=== PATIENT | female | born 1995 | race American Indian/Alaskan Native ===

== ENCOUNTER 2017-07-18 18:41 | Emergency (ER) | payer SELFPAY ==
[2017-07-18 19:18] VITALS: BP 121/82
[2017-07-18 21:38] LABS: Bacteria,Urine 1+ /HPF (Negative); Bilirubin,Urine NEG (Negative); Blood,Urine NEG (Negative); Color,Urine Yellow (Yellow); Mucus,Urine FEW /HPF; Protein,Urine <15 mg/dL mg/dL (Negative)
[2017-07-18 21:42] LABS: HCG Qualitative,Urine Positive (Negative)
--- NOTE | 2017-07-18 21:56 | Emergency Department Report ---
Chief Complaint: Urogenital-Female Stated Complaint: MEDICAL CLEARANCE Time Seen by Provider: 07/18/17 21:14 - HPI History of Present Illness: This is a 22-year-old female nontoxic, well nourished in appearance, no acute signs of distress presents to the ED for a pregnany test and STD testing. Patient denies any vaginal discharge or vaginal bleeding. Patient stated she had unproctive sex with boyfriend and "just want a check-up". Patient denies any urinary symptoms. Patient denies any fever, chills, nausea, vomiting, chest pain, short of breath, abdominal pain, back pain, stiff neck or headache. Patient denies any allergies or past medical history. - Exam Vital Signs: Vital Signs 07/18/17 19:12 Temperature 98.5 F Pulse Rate 71 Respiratory 16 Rate Blood Pressure 121/82 O2 Sat by Pulse 98 Oximetry Physical Exam: GENERAL: The patient is a well-developed, well-nourished in no apparent distress. Patient is alert and acting appropriately for age. Alert and oriented 3, no apparent distress, normal gait, atraumatic. LUNGS: Clear to auscultation. Non labor breathing. No intercostal retractions. Symmetrical with respiration, no wheezing, no rales, or crackles. HEART: Regular rate and rhythm without murmur, rubs or gallops. No reproducible. S1, S2 present, regular rate and rhythm without murmur, no rubs, no gallops. ABDOMEN: Soft, nontender, and nondistended. Positive bowel sounds. No hepatosplenomegaly was noted. No guarding or rebound tenderness, negative epigastric bruit. Negative psoas sign, negative nascimento sign, negative McBurneys sign MSE screening note: Focused history and physical exam performed. Due to findings the following was ordered: ED Medical Decision Making - Medical Decision Making This is a 22-year-old female that presents with nonmedical emergency. Patient is stable and was examined by me. Patient is asymptomatic and denies any symptoms. Patient states she just wants to be tested for STD. [employer] has approached patient for a co-pay but patient refused. I will refer the patient [facility]. At time of discharge, the patient does not seem toxic or ill in appearance. No acute signs of distress noted. Patient agrees to discharge treatment plan of care. No further questions noted by the patient. ED Disposition for MSE Clinical Impression: Possible exposure to STD Disposition: MED SCREENING EXAM-LEFT Is pt being admited?: No Condition: Stable Instructions: Safe Sex (ED) Additional Instructions: Follow-up with a primary care/OBGYN doctor in 3-5 days or if symptoms worsen and continue return to emergency room as soon as possible. Referrals: PRIMARY CAREMD [Primary Care Provider] - 3-5 Days ZACH SUMMERS MD [Staff Physician] - 3-5 Days OSCAR GOODSON MD [Staff Physician] - 3-5 Days [facility] [Provider Group] - 3-[address] [facility] [place] [Outside] - 3-5 Days [facility] [Outside] - 3-5 Days
== END 2017-07-18 22:25 | disposition left against medical advice (07) ==
LOC: ED 18:41
DX: Z11.3 Encounter for screening for infections with a predominantly sexual mode of transmission (principal)
CPT/HCPCS: 81001; 81025; 99283